=== PATIENT | female | born 1960 | race Caucasian/White ===

== ENCOUNTER 2018-08-22 06:21 | Day surgery (SDC) | payer OTHER ==
[2018-08-22] VITALS (16 sets, daily range): BP systolic 113–168; BP diastolic 49–74; PULSE 52–74; RESP 12–36; Ht 157.5 cm; Wt 76.3 kg
[~2018-08-22] VITALS: Ht 157.5 cm; Wt 76.3 kg
[2018-08-22] MEDS ORDERED: MIDAZOLAM 1 MG/ML 2 ML INJ ONE (07:01)
[2018-08-22] MEDS ORDERED: CEFAZOLIN 1 GM INJ ONE (07:01)
[2018-08-22] MEDS ORDERED: LIDOCAINE 100 MG SYRINGE ONE (07:01)
[2018-08-22] MEDS ORDERED: FENTAnyl 50 MCG/ML VIAL ONE (07:01)
[2018-08-22] MEDS ORDERED: PROPOFOL 20 ML ONE (07:01)
[2018-08-22] MEDS ORDERED: ONDANSETRON 4 MG INJ ONE (07:01)
[2018-08-22] MEDS ORDERED: DEXAMETHASONE 4 MG/ML 5 ML INJ ONE (07:01)
--- NOTE | 2018-08-22 07:05 | PREAC ---
Date/Time of Note Date/Time of Note DATE: 08/22/18 TIME: 07:04 Anesthesia Eval and Record Evaluation Time Pre-Procedure Interview DATE: 08/22/18 TIME: 07:04 Age 58 Sex female NPO: 8 hrs Preoperative diagnosis Endometrial Hyperplasia Planned procedure Hysteroscopy Past Medical History Past Medical History: None Surgery & Anesthesia Issues No known issue Meds Anticoagulation: No Beta Marleni within 24 hr: No Reason Beta Marleni not given: Pt. not on B-Marleni Meds reviewed: Yes Allergies Allergies Reviewed: Yes Labs/Studies Labs Reviewed: Reviewed by anesthesiologist test: N/A Studies: ECG Pre-procedure Exam Airway: Adequate mouth opening Mallampati: Mallampati II Teeth: Normal Lung: Normal Heart: Normal ASA Physical Status ASA physical status: 1 Emergency: None Planned Anesthetic General/MAC: LMA Pre-operative Attestations Prior to commencing anesthesia and surgery, the patient was re-evaluated, there was verification of: *The patient's identity *The results of appropriate recent lab work and preoperative vital signs *The above evaluation not changing prior to induction *Anesthetic plan, risk benefits, alternative and complications discussed with patient/family; questions answered; patient/family understands, accepts and wishes to proceed. JESUS ORTA MD August 22, 2018 07:05
[2018-08-22] MEDS ORDERED: LACTATED RINGER'S 1,000 ML IV SCH (07:30)
[2018-08-22] MEDS ORDERED: CEFAZOLIN 2 GM/50 ML (PMX) 50 ML IVPB ONE (07:30)
[2018-08-22] MEDS ORDERED: DIPHENHYDRAMINE 50 MG INJ IV PRN (08:30)
[2018-08-22] MEDS ORDERED: MEPERIDINE 25 MG INJ IV PRN (08:30)
[2018-08-22] MEDS ORDERED: HYDROmorphONE 1 MG/5 ML IV SYRINGE IV PRN ×2 (08:30)
[2018-08-22] MEDS ORDERED: ONDANSETRON 4 MG INJ IV PRN (08:30)
--- NOTE | 2018-08-22 09:05 | OPR ---
Date/Time of Note Date/Time of Note DATE: 08/22/18 TIME: 08:59 Operative Report Procedure Date: August 22, 2018 Preoperative Diagnosis Hyperplasia on endometrial polyp Postoperative Diagnosis same Operation/Procedure Performed Hysteroscopic polypectomy and myomectomy and curettage Surgeon Ryan Greene MD Manager Physical none Anesthesia Type: general Estimated Blood Loss: minimal Transfusion none Specimen Endometrial polyp and curettage and myoma Grafts/Implants none Tubes/Drains none Complications none Pt Condition Post Procedure: stable Disposition: PACU Procedure Description OPERATIVE FINDINGS AT SURGERY: Small endometrial polyp. small fibroid, Bicornuate uterus, Atrophic endometrium. CONSENT: Please see preoperative notes from my office for the consent process. DESCRIPTION OF PROCEDURE: She was taken to the operating room and general anesthesia was induced. She was prepped and draped in the usual sterile fashion. Surgical time out was done. The patient and procedure were identified. The anterior lip of the cervix was grasped with a single-tooth tenaculum. Cervix was hydro-dilated. The hysteroscope Symphion was inserted and the endometrial cavity was visualized clearly. At this time the resectoscope (truclear) was inserted and the small endometrial polyp and fibroid were resected. Directed curettage was done on both cavities. Pathology was sent to the lab. The tenaculum was removed and there was no bleeding from the tenaculum site. The patient tolerated the procedure well. RYAN GREENE MD August 22, 2018 09:05
--- NOTE | 2018-08-22 12:27 | PAC ---
Date/Time of Note Date/Time of Note DATE: 08/22/18 TIME: 12:27 Post-Anesthesia Notes Post-Anesthesia Note Last documented vital signs Vital Signs Date Temp Pulse Resp B/P (MAP) Pulse Ox O2 O2 Flow FiO2 Time Delivery Rate 08/22/18 97.1 73 18 168/73 97 Room Air 10:18 (104) 08/22/18 8.0 08:38 Activity: WNL Respiratory function: WNL Cardiovascular function: WNL Mental status: Baseline Pain reasonably controlled: Yes Hydration appropriate: Yes Nausea/Vomiting absent: Yes JESUS ORTA MD August 22, 2018 12:27
--- NOTE | 2018-08-23 12:41 | RADRPT ---
Vent Rate: 64 bpm RR Interval: 932 msec ND Interval: 178 msec QRS Duration: 94 msec QT Interval: 406 msec QTC Interval: 421 msec P-R-T St[place]: 20 - 42 - 38 degrees Sinus rhythm...normal P axis, V-rate 50- 99 Electronically Signed By: Sky Olsen
== END 2018-08-22 10:10 | disposition home or self-care (01) ==
LOC: SDS 06:21
PROVIDERS: ATTEND Specialist
DX: N84.0 Polyp of corpus uteri (principal); R94.31 Abnormal electrocardiogram [ECG] [EKG]
CPT/HCPCS: 58558; 88305; 93005; J0690; J1100; J2001; J2250; J2405; J3010; Z7512; Z7610